=== PATIENT | female | born 1980 | race Caucasian/White ===

== ENCOUNTER 2018-09-28 01:46 | Emergency (ER) | payer OTHER ==
[~2018-09-28] VITALS: Ht 172.7 cm; Wt 68.0 kg
[~2018-09-28 01:46] MED LIST: NOHOMEMEDICATIONS
[2018-09-28] MEDS ORDERED: [UNRECOGNIZED DRUG - REMARK] (02:00)
[2018-09-28] MEDS ORDERED: AMOXICILLIN875 MG PO (03:10)
[2018-09-28] MEDS ORDERED: TRAMADOL 50 MG50 MG PO (03:10)
[2018-09-28 03:21] VITALS: BP 138/99
== END 2018-09-28 03:22 | disposition home or self-care (01) ==
LOC: ER 01:46
DX: H66.91 Otitis media, unspecified, right ear (principal); J06.9 Acute upper respiratory infection, unspecified; F17.210 Nicotine dependence, cigarettes, uncomplicated; Z88.6 Allergy status to analgesic agent